=== PATIENT | female | born 1935 | race American Indian/Alaskan Native ===

== ENCOUNTER 2017-04-16 15:42 | Emergency (ER) | payer MEDICARE ==
--- NOTE | 2017-04-16 18:28 | Emergency Department Report ---
Chief Complaint: Extremity Problem,Nontraumatic Stated Complaint: BILATERAL LEG PAIN AND SWELLING Time Seen by Provider: 04/16/17 18:26 - HPI History of Present Illness: TO ER W B KNEE PAIN AND SWELLING WORSE OVER THE LAST 2 W NO CP NO SOB SAT 94 ON RA POOR INFORMANT SON DROPPED OFF CAN NOT TELL ME MEDS STATES IN PT FOR HER LEGS - Exam Vital Signs: Vital Signs 04/16/17 15:57 Temperature 98.5 F Pulse Rate 94 H Respiratory 16 Rate Blood Pressure 138/96 O2 Sat by Pulse 94 Oximetry MSE screening note: Focused history and physical exam performed. Due to findings the following was ordered: ED Disposition for MSE Condition: Stable Referrals: PRIMARY CARE, [Primary Care Provider] - 3-5 Days
[2017-04-16 19:11] LABS: Basophils % (Auto) 0.5 % (0.0-1.8); Eosinophils % (Auto) 2.4 % (0.0-4.3); Hematocrit 31.8 % (30.3-42.9); Hemoglobin 10.6 gm/dl (10.1-14.3); Mean Corpuscular HGB Conc 33 % (30-34); Mean Corpuscular Hemoglobin 31 pg (28-32); Mean Corpuscular Volume 94 fl (79-97); Platelet Count 228 K/mm3 (140-440); Red Cell Distribution Width 13.1 % (13.2-15.2)
--- NOTE | 2017-04-16 19:20 | XRay Report ---
FINAL REPORT EXAM: XR CHEST 1V AP HISTORY: LEG PAIN AND SWELLING, hx heart disease, chf TECHNIQUE: AP portable view of the chest PRIORS: None. FINDINGS: Lines, tubes, and devices: N/A Lungs and pleura: Trachea is normal in position. Lungs are clear of infiltrate, pleural effusion, vascular congestion, or pneumothorax. Cardiomediastinal silhouette: Cardiac silhouette is moderately enlarged. Other: Bony structures are intact. IMPRESSION: No acute cardiopulmonary process seen. Moderate cardiomegaly.
[2017-04-16 19:27] LABS: Albumin 3.8 g/dL (3.9-5); Albumin/Globulin Ratio 1.2 %; Bilirubin,Total 0.3 mg/dL (0.1-1.2); Calcium 8.9 mg/dL (8.4-10.2); Chloride 104.5 mmol/L (98-107); Potassium 4.4 mmol/L (3.6-5.0)
[2017-04-16] MEDS ORDERED: DECADRON PO ONE ×2 (21:02→21:17)
--- NOTE | 2017-04-16 21:03 | Emergency Department Report ---
Upper Extremity - [facility] Chief Complaint: Extremity Problem,Nontraumatic Stated Complaint: BILATERAL LEG PAIN AND SWELLING Time Seen by Provider: 04/16/17 18:26 Occurred When: >5 Days Mechanism: Other (CHRONIC PAIN) ED Review of Systems ROS: Stated complaint: BILATERAL LEG PAIN AND SWELLING Other details as noted in HPI ED Past Medical Hx - Past Medical History Previous Medical History?: Yes Hx Arthritis: Yes Additional medical history: Cardiac, high cholesterol - Surgical History Additional Surgical History: R foot surgery, Bladder tack - Social History Smoking Status: Never Smoker Substance Use Type: None Upper Extremity Exam - Exam General: Vital signs noted. No distress. Alert and acting appropriately. ED Course Vital Signs 04/16/17 15:57 Temperature 98.5 F Pulse Rate 94 H Respiratory 16 Rate Blood Pressure 138/96 O2 Sat by Pulse 94 Oximetry ED Medical Decision Making - Lab Data Result diagrams: 04/16/17 18:37 04/16/17 23:34 Critical care attestation.: If time is entered above; I have spent that time in minutes in the direct care of this critically ill patient, excluding procedure time. ED Disposition Condition: Stable Referrals: PRIMARY CARE, [Primary Care Provider] - 3-5 Days
[2017-04-16] MEDS ORDERED: DECADRON ONE (21:18)
[2017-04-16] MEDS ORDERED: NACL 0.9% 1000 ML 1,000 ML IV ONE (23:21)
[2017-04-17 00:02] LABS: Calcium 8.6 mg/dL (8.4-10.2); Potassium 4.2 mmol/L (3.6-5.0)
--- NOTE | 2017-04-17 03:19 | Emergency Department Report ---
ED Lower Extremity HPI - General Chief Complaint: Extremity Problem,Nontraumatic Stated Complaint: BILATERAL LEG PAIN AND SWELLING Time Seen by Provider: 04/16/17 18:26 Source: patient Mode of arrival: Ambulatory Limitations: No Limitations - History of Present Illness Initial Comments: 81 YO FEMALE WITH H/O BILATERLA KNEE PAIN AND LEG PAIN. SHE HAS HAD NOT KNEE PAIN FOR YEARS INTERMITTENTLY AND HAS BEEN IN PHYSICAL THERAPHY FOR HER NEE FOR MORE THAN 2 WEEKS. SHE HAS BEEN TOLD BY HER DR THAT SHE HAS ARTHRITIS. MD Complaint: knee injury (BILATERAL) -: Gradual Injury: Leg: Right, Left, Knee: Right, Left Type of Injury: other (NO INJURY ) Worsens With: movement, palpation Associated Symptoms: ambulatory - Related Data Previous Rx's Medication Instructions Recorded Last Taken Type oxyCODONE /ACETAMINOPHEN [Percocet 1 tab PO Q6HR PRN #10 tablet 04/17/17 Unknown Rx 5/325] Allergies Allergy/AdvReac Type Severity Reaction Status Date / Time No Known Allergies Allergy Verified 04/16/17 21:19 ED Review of Systems ROS: Stated complaint: BILATERAL LEG PAIN AND SWELLING Other details as noted in HPI Constitutional: denies: chills, fever Eyes: denies: eye pain, eye discharge, vision change ENT: denies: ear pain, throat pain Respiratory: denies: cough, shortness of breath, wheezing Cardiovascular: denies: chest pain, palpitations Endocrine: no symptoms reported Gastrointestinal: denies: abdominal pain, nausea, diarrhea Genitourinary: denies: urgency, dysuria, discharge Musculoskeletal: denies: back pain, joint swelling, arthralgia Skin: denies: rash, lesions Neurological: denies: headache, weakness, paresthesias Psychiatric: denies: anxiety, depression Hematological/Lymphatic: denies: easy bleeding, easy bruising ED Past Medical Hx - Past Medical History Previous Medical History?: Yes Hx Arthritis: Yes Additional medical history: Cardiac, high cholesterol - Surgical History Additional Surgical History: R foot surgery, Bladder tack - Social History Smoking Status: Never Smoker Substance Use Type: None - Medications Home Medications: Home Medications Medication Instructions Recorded Confirmed Last Taken Type oxyCODONE /ACETAMINOPHEN [Percocet 1 tab PO Q6HR PRN #10 tablet 04/17/17 Unknown Rx 5/325] ED Physical Exam - General Limitations: No Limitations General appearance: alert, in no apparent distress - Head Head exam: Present: atraumatic, normocephalic - Eye Eye exam: Present: normal appearance - ENT ENT exam: Present: mucous membranes moist - Neck Neck exam: Present: normal inspection - Respiratory Respiratory exam: Present: normal lung sounds bilaterally. Absent: respiratory distress - Cardiovascular Cardiovascular Exam: Present: regular rate, normal rhythm. Absent: systolic murmur, diastolic murmur, rubs, gallop - GI/Abdominal GI/Abdominal exam: Present: soft, normal bowel sounds - Extremities Exam Extremities exam: Present: normal inspection, full ROM, tenderness (BILATERAL KNEE AND CALF) - Back Exam Back exam: Present: normal inspection - Neurological Exam Neurological exam: Present: alert, oriented X3, CN II-XII intact - Psychiatric Psychiatric exam: Present: normal affect, normal mood - Skin Skin exam: Present: warm, dry, intact, normal color. Absent: rash ED Course Vital Signs 04/16/17 15:57 Temperature 98.5 F Pulse Rate 94 H Respiratory 16 Rate Blood Pressure 138/96 O2 Sat by Pulse 94 Oximetry ED Lower Extremity MDM - Lab Data Result diagrams: 04/16/17 18:37 04/16/17 23:34 Critical care attestation.: If time is entered above; I have spent that time in minutes in the direct care of this critically ill patient, excluding procedure time. ED Disposition Clinical Impression: Knee pain, acute Qualifiers: Laterality: bilateral Qualified Code(s): M25.561 - Pain in right knee; M25.562 - Pain in left knee; M25.562 - Pain in left knee Osteoarthritis Qualifiers: Osteoarthritis location: knee Osteoarthritis type: unspecified Laterality: bilateral Qualified Code(s): M17.0 - Bilateral primary osteoarthritis of knee Disposition: - TO HOME OR SELFCARE Is pt being admited?: No Does the pt Need Aspirin: No Condition: Stable Instructions: Arthralgia (ED), Osteoarthritis (ED) Additional Instructions: PLEASE RETURN TOMORROW FOR DOPPLER US OF BOTH LEGS. Prescriptions: oxyCODONE /ACETAMINOPHEN [Percocet 5/325] 1 tab PO Q6HR PRN #10 tablet PRN Reason: Pain Referrals: PRIMARY CARE,MD [Primary Care Provider] - 3-5 Days
[2017-04-17 05:31] VITALS: BP 132/69
== END 2017-04-17 05:31 | disposition home or self-care (01) ==
LOC: ED 15:42
DX: M17.0 Bilateral primary osteoarthritis of knee (principal); M25.562 Pain in left knee; M25.561 Pain in right knee; E78.00 Pure hypercholesterolemia, unspecified; R60.0 Localized edema
CPT/HCPCS: 36415; 71010; 80048; 80053; 83880; 84484; 85025; 93005; 93010; 96360; 99284; J7030; J8540

== ENCOUNTER 2017-04-19 12:48 | Outpatient (CLI) | payer MEDICARE | END 2017-04-19 12:49 | disposition home or self-care (01) | LOC: VAS 12:48 | PROVIDERS: ATTEND Emergency Medicine | DX: M79.604 Pain in right leg (principal); M79.605 Pain in left leg; M79.89 Other specified soft tissue disorders | CPT/HCPCS: 93970 ==